=== PATIENT | female | born 1980 | race Caucasian/White ===

== ENCOUNTER 2019-05-04 11:40 | Inpatient (IN) | payer OTHER ==
[2019-05-04 12:45] LABS: BASO % 0.5 % (0-2.0); EOS % 0.7 % (0-4.5); HEMATOCRIT 22.4 % (32.4-45.2); HEMOGLOBIN 7.2 GM/dL (10.7-15.3); LYMPH % 24.3 % (8-40); MCHC 32.2 g/dl (32.0-36.0); MEAN CELL VOLUME 74.6 fl (80-96); MONO % 6.6 % (3.8-10.2); NEUT % 67.9 % (42.8-82.8); PLATELET COUNT 201 K/MM3 (134-434); RDW 15.5 % (11.6-15.6); WHITE BLOOD COUNT 5.8 K/mm3 (4.0-10.0)
[2019-05-04 12:59] LABS: CALCIUM 8.6 mg/dL (8.5-10.1); CREATININE 0.5 mg/dL (0.55-1.3); POTASSIUM 4.2 mmol/L (3.5-5.1)
[2019-05-04 13:05] LABS: INR 0.94 (0.83-1.09); PROTHROMBIN TIME (PATIENT) 11.1 SEC (9.7-13.0)
[2019-05-04 13:07] VITALS: BMI 35.5
[2019-05-04 13:08] LABS: ACTIVATED PTT 25.4 SECONDS (25.2-36.5)
[2019-05-04] MEDS ORDERED: CITRIC ACID/SODIUM CITRATE 30 ML UNIT-DOSE CUP PO ONE (14:24)
[2019-05-04] MEDS ORDERED: ELECTROLYTE-148 SOLN 500 ML IV ONE (14:24)
[2019-05-04] MEDS ORDERED: ONDANSETRON 4 MG/2 ML VIAL IVPUSH PRN (15:13)
[2019-05-04] MEDS ORDERED: morphine SULFATE/PF 0.5 MG/ML (2cc Syringe - QUVA) EP ONE (15:13)
[2019-05-04] MEDS ORDERED: morphine SULFATE/PF 0.5 MG/ML (2cc Syringe - QUVA) ONE (15:18)
[2019-05-04] MEDS ORDERED: ceFAZolin SODIUM 1 GM VIAL ONE (15:28)
[2019-05-04] MEDS ORDERED: OXYTOCIN 10 UNITS/ML VIAL ONE (15:41)
[2019-05-04] MEDS ORDERED: OXYTOCIN 20 UNITS in 0.9% NS 20 UNIT/1,000 ML INFUS.BAG IV ONE (16:13)
[2019-05-04] MEDS ORDERED: METHYLERGONOVINE MALEATE 0.2 MG/1 ML AMP IM PRN (16:57)
[2019-05-04] MEDS ORDERED: oxyCODONE HCL 5 MG TABLET PO PRN (16:57)
[2019-05-04] MEDS: OXYTOCIN 20 UNITS in 0.9% NS 20 UNIT/1,000 ML INFUS.BAG IV SCH (17:00)
--- NOTE | 2019-05-04 17:07 | HP ---
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: No: Alzheimer's, CVA, Dementia, Migraine, Multiple Sclerosis, Peripheral Neuropathy, Parkinson's, Seizure, Syncope, TIA, Vertigo, Other Cardiovascular: No: AFIB, Aneurysm, Aortic Insufficiency, Aortic Stenosis, CAD, CHF, Deep Vein Thrombosis, HTN, Hyperlipdemia, VT, Mitral Insufficiency, Mitral Stenosis, Murmur, Pulmonary Hypertension, Other Pulmonary: No: Asthma, Bronchitis, Cancer, COPD, O2 Dependent, Pneumonia, Previously Intubated, Pulmonary Embolus, Pulmonary Fibrosis, Sleep Apnea, Other Gastrointestinal: No: Ascites, Cancer, Constipation, Crohn's Disease, Diverticulitis, Diverticulosis, Esophageal Varices, Gastritis, GERD, GI Bleed, Hemorrhoids, Hiatal Hernia, Inflamatory Bowel Disease, Irritable Bowel Disease, Pancreatitis, Peptic Ulcer Disease, Ulcerative Colitis, Other Hepatobiliary: No: Cirrhosis, Cholelithiasis, Cholecystitis, Choledocholithiasis , Hepatitis A, Hepatitis B, Hepatitis C, Other Renal/: No: Renal Failure, Renal Inusuff, BPH, Cancer, Hematuria, Hemodialysis , Neurogenic Bladder, Renal Calculi, UTI, Other Reproductive: No: Ectopic , Endometriosis, Fibroids, PID, Polycystic Ovary Syndrome, Postmenopausal, Other ...: 2 ...Para: 1 ...Term: 1 ...: 0 ...Spon : 0 ...Induced : 0 ...Multiple Gestation: 1 ... Weeks Gestation by Dates: 36 ...EDC by Sono: 05/30/19 Heme/Onc: Yes: Anemia Infectious Disease: No: AIDS, C-Diff, Herpes Zoster, HIV, MRSA, STD's, Tuberculosis, VREF, Other Psych: No: Addictions, Anxiety, Bipolar, Depression, Panic, Psychosis, Schizophrenia, Other Musculoskeletal: No: Bursitis, Chronic low back pain, Hemiparesis, Hemiplegia, Osteoarthritis, Paraplegia, Other Rheumatology: No: Fibromyalgia, Gout, Lupus, Rheumatoid Arthritis, Sarcoidosis, Vasculitis, Other ENT: No: Allergic Rhinitis, Sinusitis, Other Endocrine: Yes: Other Dermatology: No: Basal Cell, Cellulitis, Eczema, Melanoma, Psoriasis, Squamous Cell, Other Additional Medical History: gdm on glyburide - Past Surgical History Past Surgical History: Yes: Hx Myomectomy: No Hx Transabdominal Cerclage: No - Advance Directives Advance Directives: No: Living Will, Health Care Proxy, DNR, Organ Donor, Tissue Donor, MOLST - Smoking History Smoking history: Never smoked Have you smoked in the past 12 months: No - Alcohol/Substance Use Hx Alcohol Use: No History of Substance Use: reports: None - Social History Usual Living Arrangement: Yes: Alone, With Spouse Do you think of yourself as: Straight/Heterosexual ADL: Independent History of Recent Travel: No Home Medications - Allergies Allergies/Adverse Reactions: Allergies Allergy/AdvReac Type Severity Reaction Status Date / Time No Known Allergies Allergy Verified 05/04/19 13:26 - Home Medications Home Medications: Ambulatory Orders Glyburide 2.5 mg PO DAILY 04/07/19 Glyburide 5 mg PO HS 04/07/19 Vitamins (Sjr) - 1 tab PO DAILY 04/07/19 Family Medical History Family History: Denies Review of Systems - Review of Systems Constitutional: reports: No Symptoms Eyes: reports: No Symptoms HENT: reports: No Symptoms Neck: reports: No Symptoms Cardiovascular: reports: No Symptoms Respiratory: reports: No Symptoms Gastrointestinal: reports: No Symptoms Genitourinary: reports: No Symptoms Breasts: reports: No Symptoms Reported Musculoskeletal: reports: No Symptoms Integumentary: reports: No Symptoms Neurological: reports: No Symptoms Endocrine: reports: Other Hematology/Lymphatic: reports: No Symptoms Psychiatric: reports: No Symptoms Physical Exam - Maternity Vital Signs: Vital Signs Temperature 98.5 F 05/04/19 12:37 Pulse Rate 86 05/04/19 12:37 Respiratory Rate 20 05/04/19 12:37 Blood Pressure 122/68 05/04/19 12:37 O2 Sat by Pulse Oximetry (%) Constitutional: Yes: Well Nourished, No Distress, Calm Eyes: Yes: WNL, Conjunctiva Clear, EOM Intact HENT: Yes: WNL, Atraumatic, Normocephalic Neck: Yes: WNL, Supple, Trachea Midline Cardiovascular: Yes: WNL, Regular Rate and Rhythm Lungs: Clear to auscultation Breast(s): Yes: WNL - Abdominal Exam/OB Fundal Height: 42 Number of Fetuses: Multiple Presentation: Vertex, Transverse Contractions: No Regularity: Irritability Intensity: Unaware Monitor Mode: External Heart Rate (range): 130 rang e Heart Rate Location: RUQ Category: I Accelerations: Uniform Decelerations: None - Vaginal Exam/OB Vaginal Bleediing: No Speculum Exam: Yes Dilatation (cm): 1cm Effacement (%): 20 Amniotic Membrane Status: Intact Amniotic Fluid: Yes: Clear Presentation: Vertex/Position Station: -2 - Physical Exam Musculoskeletal: Yes: WNL Extremities: Yes: WNL Edema: No Integumentary: Yes: WNL Deep Tendon Reflex Grade: Normal +2 ...Motor Strength: WNL Psychiatric: Yes: WNL, Alert, Oriented - Labs Lab Results: CBC, BMP 05/04/19 12:20 05/04/19 12:20 Hemorrhage Risk Assessment - Risk Factors Medium Risk Factors: Yes: Prior , uterine surgery,or multiple laparotomies, Multiple gestation, Hematocrit < 30% & other Risk Score: 3 Risk Level: High Risk Assessment/Plan: willtransfuse 2 prbc before c s Assessment/Plan pt called this am 1030 c/o mucous plug ang pink discharge, was asked to come into office for eval, cervix was checked, only mucous plug seen, no vag bleeding , finger tip opening, not in labor pain at all.However, sono done, which showed no fhr for twin a, twin b was in good bpp. Pt was sent into hospital [facility] to confirm no fhr of twin a, pt arrived, and demise of twin a was confirmed. Pt was preped for c s lisa to deliver twin b. cbc showed pt is anemia of h/h of 22.5, therefor, will transfuse pt 2 pack of rbc before cs .
--- NOTE | 2019-05-04 17:19 | OP ---
Operative Note - Note: Operative Date: 05/04/19 Pre-Operative Diagnosis: repeat lt c s, demise of one twin ,gdm on glyburide , vx, transverse , btl Operation: repeat lt c s , btl, Findings: twin a demise, vx, arom , no can seen , twin b transverse delivered by vertx, arom, no complication for twin b , clear fluids both sacs Post-Operative Diagnosis: Same as Pre-op Surgeon: Rodney Darby Flat Cutter: Darren Santiago Anesthesiologist/OFFICE MACHINE SERVICE SUPERVISOR: Haresh Browning Anesthesia: Spinal Specimens Removed: tubes Estimated Blood Loss (mls): 500 (good hemostasis ) Operative Report Dictated: Yes
[2019-05-04] MEDS: IBUPROFEN 800 MG/8 ML IJ IVPB PRN (18:00)
[2019-05-04] MEDS ORDERED: IBUPROFEN 800 MG/8 ML IJ IVPB ONE (18:06)
[2019-05-04 19:01] LABS: HEMOGLOBIN 8.8 GM/dL (10.7-15.3); MCH 24.6 pg (25.7-33.7); MCHC 31.6 g/dl (32.0-36.0); MEAN CELL VOLUME 77.8 fl (80-96); PLATELET COUNT 195 K/MM3 (134-434); RDW 16.6 % (11.6-15.6); WHITE BLOOD COUNT 7.9 K/mm3 (4.0-10.0)
--- NOTE | 2019-05-04 20:45 | OP ---
DATE OF OPERATION: 05/04/2019 PREOPERATIVE DIAGNOSIS: Repeat low transverse section, bilateral tubal ligation, demise of one twin, and gestational diabetic on glyburide. POSTOPERATIVE DIAGNOSIS: Repeat low transverse section, bilateral tubal ligation, demise of one twin, and gestational diabetic on glyburide. Vertex and transverse, and a twin A demise, and repeat low transverse section, bilateral tubal ligation. PROCEDURE: Repeat low transverse section, bilateral tubal ligation. SURGEON: Rodney Darby M.D. SLAB STRIPPER: Harrison López ANESTHESIOLOGIST: Haresh Browning M.D. ANESTHESIA: Spinal. BLOOD LOSS: About 500 mL. PATHOLOGY: Placenta. INDICATION: This is a 39-year-old female patient, 36 weeks and 2 days , gestational diabetic on diet and glyburide, and patient has been followed up with perinatologist, Dr. Blanc, and patient had NSC done for twin gestation weekly, and patient complained about a mucous plug and possible pink discharge this morning around 10:30, and the patient was asked to come into the hospital to be evaluated. The patient came around 11. The patient was seen. Patient still stated that baby was moving this morning and the last night, and patient did not want to come in to the office to be evaluated, but patient was advised to come in to be evaluated. Patient was checked, and speculum exam was done, and patient was found to be only mucous plug, and no bleeding, no spotting was seen. The cervix still fingertip opening, and no ruptured membrane at all. Then I proceeded to do the sonogram, and the twin B biophysical profile 8 out of 8. Twin A however, heartbeat was not able to be found. So at this time patient was asked to come into the hospital to be evaluated to reconfirm there was no heartbeat of twin A. So patient came in, and patient had a sonogram confirmed by Dr. Blanc's office, demise was confirmed. There is no heartbeat of twin A. So patient was prepped for repeat low transverse section. Patient was scheduled for this Saturday at 37 weeks for a repeat low transverse section. However, patient with above condition, patient was prepped for section FELTON. So patient had blood work done, and patient with CBC showed anemic, with hemoglobin and hematocrit of 22.5, so at this time anesthesiologist and we agree that we need to transfuse the patient before the , and the patient received Plasmalyte, IV fluids, in preoperative for the section. So patient was taken to OR and after 2 packed red blood cells were transfused. DESCRIPTION OF PROCEDURE: Patient was placed on operating table in supine position after spinal anesthesia was obtained. The patient's abdomen and pelvis were prepped and draped in the usual sterile manner. Pfannenstiel incision was made. The incision was made through skin, subcutaneous tissue, until the fascia was nicked in the midline. The fascia was extended bilaterally. Intraperitoneal cavity was entered, bladder flap was created. Low transverse section of uterus was entered. Twin A was artificially ruptured membrane and twin A was delivered from vertex presentation. KANDY position, twin A was handled by zoology technical officer and umbilical cord was doubly clamped and cut, and would proceed to deliver twin B. Twin B's artificial membrane was performed, and twin B was in transverse position, and delivered from vertex presentation, and twin B was handed over to zoology technical officer after umbilical cord doubly clamped and cord. No cord blood gas was obtained. Placenta was removed as diamniotic dichorionic placenta and twin. Good hemostasis was obtained. Uterus was closed in single layer, first layer interlocking Vicryl suture, good hemostasis, and no complications. And now we proceed to the tubal ligation part fallopian tube was grasped with Irene, doubly transected and suture ligated. Good hemostasis. Both ends of the tube were coagulated with Bovie, good hemostasis. Ovaries were within normal limits. Uterus was within normal limits. No fibroids. She tolerated procedure well. about 500 mL. No complications. Peritoneum was closed. Fascia was closed. Skin was closed. Transferred to recovery room in stable condition. Again, good hemostasis, draining clear urine. MD MONICA VILLAGOMEZ/[id number]
[2019-05-05] MEDS: IBUPROFEN 800 MG/8 ML IJ IVPB PRN (07:43)
[2019-05-05 08:42] LABS: BASO % 0.4 % (0-2.0); EOS % 0.8 % (0-4.5); HEMATOCRIT 22.2 % (32.4-45.2); HEMOGLOBIN 7.4 GM/dL (10.7-15.3); LYMPH % 19.8 % (8-40); MCHC 33.2 g/dl (32.0-36.0); MEAN CELL VOLUME 75.3 fl (80-96); MEAN PLT VOLUME 9.4 fl (7.5-11.1); MONO % 5.6 % (3.8-10.2); NEUT % 73.4 % (42.8-82.8); PLATELET COUNT 168 K/MM3 (134-434); RBC 2.95 M/mm3 (3.60-5.2); RDW 16.1 % (11.6-15.6); WHITE BLOOD COUNT 8.1 K/mm3 (4.0-10.0)
[2019-05-05] MEDS: ENOXAPARIN NA (PORCINE) 40 MG/0.4 ML DISP.SYRIN SQ SCH (09:25)
--- NOTE | 2019-05-05 09:54 | PN ---
Post Progress Note Post Day: 1 Type of Delivery: Repeat C/S Vital Signs: Vital Signs Temperature 98.4 F 05/05/19 02:20 Pulse Rate 80 05/05/19 02:20 Respiratory Rate 20 05/05/19 06:00 Blood Pressure 107/59 L 05/05/19 02:20 O2 Sat by Pulse Oximetry (%) 100 05/04/19 18:00 Breast Exam: Yes: Soft Uterus: Yes: Fundus Firm, Fundus below umbilicus Incision: Yes: Dressing dry and intact, Sutures intact Abdomen/GI: Yes: Abdomen soft, Passing flatus, Tolerating PO Lochia: Yes: Serosa Lochia, amount: Small Extremities: Yes: Calves non-tender Perineum: Yes: Intact Activity: Ambulating - Labs Labs: CBC WBC 8.1 K/mm3 (4.0-10.0) 05/05/19 07:50 RBC 2.95 M/mm3 (3.60-5.2) L 05/05/19 07:50 Hgb 7.4 GM/dL (10.7-15.3) L 05/05/19 07:50 Hct 22.2 % (32.4-45.2) L D 05/05/19 07:50 MCV 75.3 fl (80-96) L 05/05/19 07:50 MCH 25.0 pg (25.7-33.7) L 05/05/19 07:50 MCHC 33.2 g/dl (32.0-36.0) 05/05/19 07:50 RDW 16.1 % (11.6-15.6) H 05/05/19 07:50 Plt Count 168 K/MM3 (134-434) 05/05/19 07:50 MPV 9.4 fl (7.5-11.1) 05/05/19 07:50 Absolute Neuts (auto) 6.0 K/mm3 (1.5-8.0) 05/05/19 07:50 Neutrophils % 73.4 % (42.8-82.8) 05/05/19 07:50 Lymphocytes % 19.8 % (8-40) 05/05/19 07:50 Monocytes % 5.6 % (3.8-10.2) 05/05/19 07:50 Eosinophils % 0.8 % (0-4.5) 05/05/19 07:50 Basophils % 0.4 % (0-2.0) 05/05/19 07:50 Nucleated RBC % 0 % (0-0) 05/05/19 07:50 Other Findings, Remarks: anemia, h/h 22.5,no active bleeding, will give po iron pills
[2019-05-05] MEDS: ACETAMINOPHEN 325 MG TABLET (FP) PO PRN ×2 (15:14→20:46)
[2019-05-05] MEDS: IBUPROFEN 600 MG TABLET (FP) PO PRN ×2 (15:15→20:46)
--- NOTE | 2019-05-05 15:34 | PN ---
Progress Note (short form) - Note Progress Note: Anesthesia postop note 39 y/o F s/p spinal anesthesia/duramorph for section POD#1, vss, aaox3, pain well controlled, sensory motor intact distally No anesthesia complications.
[2019-05-05] MEDS ORDERED: BISACODYL 10 MG SUPP.RECT RC PRN (16:57)
[2019-05-05] MEDS: OXYTOCIN 20 UNITS in 0.9% NS 20 UNIT/1,000 ML INFUS.BAG IV SCH (20:01)
[2019-05-05] MEDS: ELECTROLYTE-148 SOLN 1,000 ML IV SCH (20:02)
[2019-05-05] MEDS: SENNOSIDES/DOCUSATE COMBO (SENNA PLUS) TABLET (UD) PO PRN (20:46)
[2019-05-05] MEDS: SIMETHICONE 80 MG TAB.CHEW (FP) PO PRN (20:46)
[2019-05-06] MEDS: IBUPROFEN 600 MG TABLET (FP) PO PRN ×4 (00:38→22:15)
[2019-05-06] MEDS: ACETAMINOPHEN 325 MG TABLET (FP) PO PRN ×4 (00:39→22:15)
[2019-05-06] MEDS: SIMETHICONE 80 MG TAB.CHEW (FP) PO PRN ×3 (00:39→22:15)
[2019-05-06] MEDS ORDERED: DIPHTH,PERTUSS(ACELL),TET 0.5 ML DISP.SYRIN IM ONE (10:00)
[2019-05-06] MEDS ORDERED: FLU VACCINE QUAD 60 MCG/0.5 ML (MDV 19-20) IM ONE (10:00)
[2019-05-06] MEDS ORDERED: FLU VACC QS2019-20(6MOS UP)/PF 60 MCG/0.5 ML SYRINGE IM ONE (10:00)
[2019-05-06] MEDS: ENOXAPARIN NA (PORCINE) 40 MG/0.4 ML DISP.SYRIN SQ SCH (10:33)
--- NOTE | 2019-05-06 19:13 | PN ---
Post Progress Note Post Day: 2 Type of Delivery: Repeat C/S Vital Signs: Vital Signs Temperature 97.8 F 05/06/19 08:00 Pulse Rate 80 05/06/19 08:00 Respiratory Rate 18 05/06/19 08:00 Blood Pressure 136/82 05/06/19 08:00 O2 Sat by Pulse Oximetry (%) 100 05/04/19 18:00 Breast Exam: Yes: Soft Uterus: Yes: Fundus Firm, Fundus below umbilicus Incision: Yes: Dressing dry and intact, Sutures intact Abdomen/GI: Yes: Abdomen soft, Passing flatus, Tolerating PO Lochia: Yes: Serosa Lochia, amount: Small Extremities: Yes: Calves non-tender Perineum: Yes: Intact Activity: Ambulating - Labs Labs: CBC WBC 8.1 K/mm3 (4.0-10.0) 05/05/19 07:50 RBC 2.95 M/mm3 (3.60-5.2) L 05/05/19 07:50 Hgb 7.4 GM/dL (10.7-15.3) L 05/05/19 07:50 Hct 22.2 % (32.4-45.2) L D 05/05/19 07:50 MCV 75.3 fl (80-96) L 05/05/19 07:50 MCH 25.0 pg (25.7-33.7) L 05/05/19 07:50 MCHC 33.2 g/dl (32.0-36.0) 05/05/19 07:50 RDW 16.1 % (11.6-15.6) H 05/05/19 07:50 Plt Count 168 K/MM3 (134-434) 05/05/19 07:50 MPV 9.4 fl (7.5-11.1) 05/05/19 07:50 Absolute Neuts (auto) 6.0 K/mm3 (1.5-8.0) 05/05/19 07:50 Neutrophils % 73.4 % (42.8-82.8) 05/05/19 07:50 Lymphocytes % 19.8 % (8-40) 05/05/19 07:50 Monocytes % 5.6 % (3.8-10.2) 05/05/19 07:50 Eosinophils % 0.8 % (0-4.5) 05/05/19 07:50 Basophils % 0.4 % (0-2.0) 05/05/19 07:50 Nucleated RBC % 0 % (0-0) 05/05/19 07:50 Other Findings, Remarks: doing well,
[2019-05-06] MEDS: FERROUS SO4 325 MG TABLET (FP) PO SCH (22:15)
[2019-05-07] MEDS: oxyCODONE HCL 5 MG TABLET PO PRN ×3 (00:50→21:17)
[2019-05-07 08:13] LABS: BASO % 0.6 % (0-2.0); EOS % 2.1 % (0-4.5); HEMATOCRIT 22.5 % (32.4-45.2); HEMOGLOBIN 7.3 GM/dL (10.7-15.3); LYMPH % 24.4 % (8-40); MCH 25.2 pg (25.7-33.7); MCHC 32.7 g/dl (32.0-36.0); MEAN PLT VOLUME 9.1 fl (7.5-11.1); MONO % 4.3 % (3.8-10.2); NEUT % 68.6 % (42.8-82.8); PLATELET COUNT 190 K/MM3 (134-434); RBC 2.92 M/mm3 (3.60-5.2); RDW 16.5 % (11.6-15.6); WHITE BLOOD COUNT 7.9 K/mm3 (4.0-10.0)
[2019-05-07] MEDS: IBUPROFEN 600 MG TABLET (FP) PO PRN ×2 (08:29→16:05)
[2019-05-07] MEDS: ACETAMINOPHEN 325 MG TABLET (FP) PO PRN ×3 (08:30→21:13)
[2019-05-07] MEDS: ENOXAPARIN NA (PORCINE) 40 MG/0.4 ML DISP.SYRIN SQ SCH (10:20)
[2019-05-07] MEDS: FERROUS SO4 325 MG TABLET (FP) PO SCH ×2 (10:20→21:12)
--- NOTE | 2019-05-07 11:26 | PN ---
Post Progress Note Post Day: 3 Type of Delivery: Repeat C/S Vital Signs: Vital Signs Temperature 98.7 F 05/07/19 09:22 Pulse Rate 71 05/07/19 09:22 Respiratory Rate 20 05/07/19 09:22 Blood Pressure 134/71 05/07/19 09:22 O2 Sat by Pulse Oximetry (%) 100 05/04/19 18:00 Breast Exam: Yes: Soft Uterus: Yes: Fundus Firm, Fundus below umbilicus, Non-tender Incision: Yes: Dressing dry and intact, Sutures intact Abdomen/GI: Yes: Abdomen soft, Passing flatus, Tolerating PO Lochia: Yes: Serosa Lochia, amount: Small Extremities: Yes: Calves non-tender Perineum: Yes: Intact Activity: Ambulating - Labs Labs: CBC WBC 7.9 K/mm3 (4.0-10.0) 05/07/19 07:33 RBC 2.92 M/mm3 (3.60-5.2) L 05/07/19 07:33 Hgb 7.3 GM/dL (10.7-15.3) L 05/07/19 07:33 Hct 22.5 % (32.4-45.2) L 05/07/19 07:33 MCV 77.0 fl (80-96) L 05/07/19 07:33 MCH 25.2 pg (25.7-33.7) L 05/07/19 07:33 MCHC 32.7 g/dl (32.0-36.0) 05/07/19 07:33 RDW 16.5 % (11.6-15.6) H 05/07/19 07:33 Plt Count 190 K/MM3 (134-434) 05/07/19 07:33 MPV 9.1 fl (7.5-11.1) 05/07/19 07:33 Absolute Neuts (auto) 5.4 K/mm3 (1.5-8.0) 05/07/19 07:33 Neutrophils % 68.6 % (42.8-82.8) 05/07/19 07:33 Lymphocytes % 24.4 % (8-40) D 05/07/19 07:33 Monocytes % 4.3 % (3.8-10.2) 05/07/19 07:33 Eosinophils % 2.1 % (0-4.5) D 05/07/19 07:33 Basophils % 0.6 % (0-2.0) 05/07/19 07:33 Nucleated RBC % 0 % (0-0) 05/07/19 07:33 Other Findings, Remarks: dc pt home tomorrow
[2019-05-07] MEDS ORDERED: oxyCODONE HCL 5 MG TABLET PO PRN (21:09)
[2019-05-07] MEDS: SENNOSIDES/DOCUSATE COMBO (SENNA PLUS) TABLET (UD) PO PRN (21:12)
[2019-05-07] MEDS: SIMETHICONE 80 MG TAB.CHEW (FP) PO PRN (21:12)
[2019-05-07] MEDS: valACYclovir HCL 500 MG TABLET (FP) PO SCH (21:12)
[2019-05-08] MEDS: SIMETHICONE 80 MG TAB.CHEW (FP) PO PRN ×3 (06:17→16:12)
[2019-05-08] MEDS: oxyCODONE HCL 5 MG TABLET PO PRN ×3 (06:17→16:12)
[2019-05-08] MEDS: ACETAMINOPHEN 325 MG TABLET (FP) PO PRN ×3 (06:17→16:12)
[2019-05-08 09:36] VITALS: BP 135/77; PULSE 74; TEMP 97.9
[2019-05-08] MEDS: valACYclovir HCL 500 MG TABLET (FP) PO SCH (10:01)
[2019-05-08] MEDS: FERROUS SO4 325 MG TABLET (FP) PO SCH (10:01)
[2019-05-08] MEDS: ENOXAPARIN NA (PORCINE) 40 MG/0.4 ML DISP.SYRIN SQ SCH (10:01)
--- NOTE | 2019-05-08 15:39 | PN ---
Post Progress Note Post Day: 4 Type of Delivery: Repeat C/S Vital Signs: Vital Signs Temperature 97.9 F 05/08/19 09:00 Pulse Rate 74 05/08/19 09:00 Respiratory Rate 18 05/08/19 09:00 Blood Pressure 135/77 05/08/19 09:00 O2 Sat by Pulse Oximetry (%) 100 05/04/19 18:00 Breast Exam: Yes: Soft Uterus: Yes: Fundus Firm, Fundus below umbilicus, Non-tender Incision: Yes: Dressing dry and intact, Sutures intact Abdomen/GI: Yes: Abdomen soft, Passing flatus, Tolerating PO Lochia: Yes: Serosa Lochia, amount: Small Extremities: Yes: Calves non-tender Perineum: Yes: Intact Activity: Ambulating (dc pt home today ) - Labs Labs: CBC WBC 7.9 K/mm3 (4.0-10.0) 05/07/19 07:33 RBC 2.92 M/mm3 (3.60-5.2) L 05/07/19 07:33 Hgb 7.3 GM/dL (10.7-15.3) L 05/07/19 07:33 Hct 22.5 % (32.4-45.2) L 05/07/19 07:33 MCV 77.0 fl (80-96) L 05/07/19 07:33 MCH 25.2 pg (25.7-33.7) L 05/07/19 07:33 MCHC 32.7 g/dl (32.0-36.0) 05/07/19 07:33 RDW 16.5 % (11.6-15.6) H 05/07/19 07:33 Plt Count 190 K/MM3 (134-434) 05/07/19 07:33 MPV 9.1 fl (7.5-11.1) 05/07/19 07:33 Absolute Neuts (auto) 5.4 K/mm3 (1.5-8.0) 05/07/19 07:33 Neutrophils % 68.6 % (42.8-82.8) 05/07/19 07:33 Lymphocytes % 24.4 % (8-40) D 05/07/19 07:33 Monocytes % 4.3 % (3.8-10.2) 05/07/19 07:33 Eosinophils % 2.1 % (0-4.5) D 05/07/19 07:33 Basophils % 0.6 % (0-2.0) 05/07/19 07:33 Nucleated RBC % 0 % (0-0) 05/07/19 07:33
--- NOTE | 2019-05-08 15:42 | DS ---
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 Vital Signs: Vital Signs Temperature 97.9 F 05/08/19 09:00 Pulse Rate 74 05/08/19 09:00 Respiratory Rate 18 05/08/19 09:00 Blood Pressure 135/77 05/08/19 09:00 O2 Sat by Pulse Oximetry (%) 100 05/04/19 18:00 Constitutional: Yes: Well Nourished, No Distress, Calm Eyes: Yes: WNL, Conjunctiva Clear, EOM Intact HENT: Yes: WNL, Atraumatic, Normocephalic Neck: Yes: WNL, Supple, Trachea Midline Cardiovascular: Yes: WNL, Regular Rate and Rhythm Respiratory: Yes: WNL, Regular, CTA Bilaterally Gastrointestinal: Yes: WNL, Normal Bowel Sounds, Soft ...Rectal Exam: Yes: WNL Renal/: Yes: WNL Pelvis: Yes: WNL External Genitalia: Yes: Normal Internal Exam Deferred: No Vaginal Exam: Yes: Normal Cervix: Yes: Normal Uterus: Yes: Normal ....Post : Yes: Uterus firm, Uterus non-tender Breast(s): Yes: WNL Musculoskeletal: Yes: WNL Extremities: Yes: WNL Edema: Yes Edema: LUE: 1+, RUE: 1+, LLE: 1+, RLE: 1+ Integumentary: Yes: WNL Wound/Incision: Yes: Clean/Dry, Well Approximated Neurological: Yes: WNL, Alert, Oriented ...Motor Strength: WNL Psychiatric: Yes: WNL, Alert, Oriented Labs: CBC, BMP 05/07/19 07:33 05/04/19 12:20 Delivery - Delivery Section: Repeat Type of Anesthesia: Spinal Episiotomy/Laceration: None EBL (cc): 500 Delivery, Single - Stages of Labor Date of Delivery: 05/04/19 Placenta: Yes: Spontaneous - Condition of Data Entry Operator/Office Employee Present: Yes Infant Gender: Male Weight: 2.183 kg - [place] Feeding Plan Initial Plan: Elected not to breastfeed exclusively throughout hospitalization Delivery, Multiple Births - Stages of Labor Delivery Baby "A" Date: 05/04/19 Time: 15:41 Placenta/Membranes "A" Date: 05/04/19 Time: 15:43 Delivery Baby "B" Date: 05/04/19 Time: 15:42 Placenta/Membranes "B" Date: 05/04/19 Time: 15:43 - Condition of Multiple Births [place] 1 (A) Gender: Male Weight: 2.183 kg Position: Left, OA Total Hours ROM (HRS/MINS): 3 2 (B) Data Entry Operator/Office Employee Present: Yes Data Entry Operator: Maame Bernabe Gender: Female Weight: 2.523 kg Total Hours ROM (HRS/MINS): 3 min - 1 (A) Score: 0 [place] 2 (B) 1 Minute Score: 9 2 (B) 5 Minutes Score: 9 Discharge Summary Problems reviewed: Yes Reason For Visit: Procedures: Principal: repeat c s Other Procedures: btl Hospital Course: uneventful Health Concerns: none Plan of Treatment: oob as much as possible Goals: return to work in 8 weeks Condition: Good - Instructions Diet, Activity, Other Instructions: regular, routine post care Disposition: HOME - Home Medications Comprehensive Discharge Medication List: Ambulatory Orders Glyburide 2.5 mg PO DAILY 04/07/19 Glyburide 5 mg PO HS 04/07/19 Vitamins (Sjr) - 1 tab PO DAILY 04/07/19 Prescription Drug Monitoring Program (I-STOP) results: I-STOP reviewed and no issues identified
--- NOTE | 2019-05-15 13:18 | PATH ---
Surgical Pathology Report Patient Name: SUNNY BANKS [facility]. Rec. 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 PLACENTA, SECTION: DIAMNIOTIC DICHORIONIC SEPARATE DISCS TWIN PLACENTA. PLACENTA A, 255 G THIRD TRIMESTER PLACENTA WITH TRIVASCULAR UMBILICAL CORD AND PLACENTAL MEMBRANES WITH MECONIUM-LADEN MACROPHAGES. PLACENTA B, 456 G THIRD TRIMESTER PLACENTA WITH TRIVASCULAR UMBILICAL CORD, FOCAL INTRAPARENCHYMAL HEMORRHAGE (~10-15% OF PLACENTAL SURFACE), AND UNREMARKABLE PLACENTAL MEMBRANES. B. FALLOPIAN TUBE, RIGHT, PARTIAL EXCISION: FULL LUMINAL PORTION OF UNREMARKABLE FALLOPIAN TUBE. C. FALLOPIAN TUBE, LEFT, PARTIAL EXCISION: FULL LUMINAL PORTION OF UNREMARKABLE FALLOPIAN TUBE. Electronically Signed Opal Gold M.D. Gross Description A. Received fresh labeled "placenta," is a twin placenta comprised of 2 separate discs, joined by dividing membranes. There are 2 clamps marking the umbilical cord of placenta "A" and 1 clamp marking the umbilical cord of placenta "B", per the surgeon. The dividing membranes are deluna and opaque. Placenta "A" is 255 g and measures 17.0 x 13.0 x 2.5 cm. The attached membranes are deluna, translucent with focal opacities and insert marginally. The umbilical cord measures 27 cm in length and averages 1.2 cm in diameter. The cord inserts centrally. No true knots or strictures are identified. Cut surface of the umbilical cord reveals 3 vessels. The surface is kendall green, meconium stained with minimal fibrin deposition and appropriate caliber vessel. The maternal surface is red-brown with focal defects. Sectioning reveals red-brown, spongy parenchyma. No lesions are identified. Placenta "B" is 456 g and measures 17.0 x 14.0 x 2.8 cm. The attached membranes are deluna, translucent with focal opacities and insert marginally. The umbilical cord measures 23 cm in length and averages 1.1 cm in diameter. The cord inserts eccentrically, 5 cm to the nearest margin. No true knots or strictures are identified. Cut surface of the umbilical cord reveals 3 vessels. The surface is kendall blue with minimal fibrin deposition and appropriate caliber vessels. The maternal surface is red-brown with focal defects. Sectioning reveals a 2.0 cm in greatest dimension hemorrhagic intraparenchymal lesion. The remaining placental parenchyma is red-brown and spongy. Accountant Assistant sections are submitted in 7 cassettes as follows: 1-placenta "A" membrane roll and umbilical cord; 2-3-full thickness sections of placenta "A"; 4-dividing membranes; 5-placenta "B" membrane roll and umbilical cord; 6-placenta "B" lesion; 7-full thickness section placenta "B". B. Received in formalin labeled "right fallopian tube," is a 1.8 cm in length portion of fallopian tube. No fimbria are present. The outer surface is deluna-kendall and smooth. Sectioning reveals an unremarkable lumen. Accountant Assistant sections are submitted in one cassette. C. Received in formalin labeled "left fallopian tube," is a 2.0 cm in length portion of fallopian tube. No fimbria are present. The outer surface is deluna-kendall and smooth. Sectioning reveals an unremarkable lumen. Accountant Assistant sections are submitted in one cassette. 05/12/2019 [facility]05/12/2019
== END 2019-05-08 16:27 | disposition home or self-care (01) | DRG 540 ==
LOC: JDEL 11:40 → JLDR 11:57 → J3W 20:15
PROVIDERS: ADMIT Obstetrics & Gynecology; ATTEND Obstetrics & Gynecology
PROC: 10D00Z1 Extraction of Products of Conception, Low, Open Approach (ICD-10-PCS; principal; 2019-05-04)
PROC: 0UB70ZZ Excision of Bilateral Fallopian Tubes, Open Approach (ICD-10-PCS; 2019-05-04)
DX: O30.043 Twin pregnancy, dichorionic/diamniotic, third trimester (principal); O24.425 Gestational diabetes mellitus in childbirth, controlled by oral hypoglycemic drugs; Z3A.36 36 weeks gestation of pregnancy; Z37.3 Twins, one liveborn and one stillborn; Z30.2 Encounter for sterilization
CPT/HCPCS: 36415; 36430; 36511; 80048; 82962; 85025; 85027; 85610; 85730; 86593; 86850; 86900; 86901; 86922; 88302-TC; 88307-TC; 90686; 90715; G0008; P9038; P9058